=== PATIENT | male | born 1990 | race Caucasian/White ===

== ENCOUNTER 2019-09-30 18:36 | Inpatient (IN) | payer BC ==
[~2019-09-30] VITALS: Ht 182.9 cm; Wt 77.1 kg
--- NOTE | 2019-09-30 19:07 | NUR ---
aSSUMED CARE OF PATIENT. NO ACUTE DISTRESS NOTED. vSS
--- NOTE | 2019-09-30 19:18 | NUR ---
PATIENT AWAITING ER MD EVALUATION.
[2019-09-30 19:30] LABS: BASOPHILS % (AUTO) 0.5 % (0.0-2.0); EOSINOPHILS # (AUTO) 0.2 K/uL (0.0-0.7); EOSINOPHILS % (AUTO) 3.6 % (0.0-7.0); HEMATOCRIT 45.1 % (36.7-47.1); HEMOGLOBIN 15.6 g/dL (12.5-16.3); LYMPHOCYTES # (AUTO) 2.1 K/uL (20.0-40.0); LYMPHOCYTES % (AUTO) 49.5 % (20.5-51.5); MEAN CORPUSCULAR HGB CONC 35 g/dL (32.5-36.3); MEAN CORPUSCULAR VOLUME 94.9 fL (73.0-96.2); MONOCYTES # (AUTO) 0.5 K/uL (2.0-10.0); MONOCYTES % (AUTO) 12.3 % (0.0-11.0); NEUTROPHILS # (AUTO) 1.4 K/uL (1.8-8.9); NEUTROPHILS % (AUTO) 34.1 % (38.5-71.5); PLATELET COUNT (AUTO) 191 K/uL (152-348); RED BLOOD CELL COUNT(AUTO) 4.75 MIL/uL (4.06-5.63); WHITE BLOOD COUNT (AUTO) 4.2 K/uL (3.6-10.2)
[2019-09-30] MEDS ORDERED: PIPERACILLIN SODIUM/TAZOBACTAM 3.375 G in IV DEXTROSE 5% 50 ML IV ONE (19:30)
[2019-09-30] MEDS ORDERED: ONDANSETRON 4 MG/2 ML VIAL IV ONE (19:30)
[2019-09-30] MEDS ORDERED: IV NS 1000 ML 1,000 ML IV ONE (19:30)
[2019-09-30] MEDS ORDERED: MORPHINE SULFATE 4 MG/1 ML DISP.SYRIN IV ONE (19:30)
[2019-09-30] MEDS ORDERED: MORPHINE SULFATE 4 MG/1 ML DISP.SYRIN ONE (19:40)
[2019-09-30] MEDS ORDERED: ONDANSETRON 4 MG/2 ML VIAL ONE (19:40)
[2019-09-30] MEDS ORDERED: PIPERACILLIN/TAZOBACTAM/D5W 50 ML IV ONE (19:41)
[2019-09-30 19:44] LABS: BILIRUBIN,DIRECT 0.1 mg/dL (0.0-0.2); BILIRUBIN,TOTAL 0.5 mg/dL (0.2-1.0); CREATININE 1.3 mg/dL (0.6-1.3); POTASSIUM 4.1 mmol/L (3.5-5.1); TOTAL PROTEIN, SERUM 7.6 g/dL (6.4-8.2)
[2019-09-30] MEDS ORDERED: IV NORMAL SALINE 250 ML IV ONE (20:02)
[2019-09-30] MEDS ORDERED: IOHEXOL 300MG/ML 100 ML INFUS..BTL ONE (20:02)
[2019-09-30] MEDS ORDERED: SWABABLE VALVE TRANSFER SET EA MC ONE (20:02)
--- NOTE | 2019-09-30 20:07 | NUR ---
PATIENT TAKEN TO CT AT THIS TIME.
--- NOTE | 2019-09-30 20:46 | NUR ---
PATIENT IN BED, NO ACUTE DISTRESS NOTED. VSS
--- NOTE | 2019-09-30 21:46 | NUR ---
ALL PATIENT NEEDS ATTENDED AND MET. CALL LIGHT IS WITHIN REACH. VSS
--- NOTE | 2019-09-30 23:12 | NUR ---
Patient in bed, no acute distress noted.
--- NOTE | 2019-10-01 00:09 | NUR ---
Pt. admitted to Med Surg , under care of Chele Horton Belongs List completed
[2019-10-01] MEDS ORDERED: MORPHINE SULFATE 4 MG/1 ML DISP.SYRIN IV ONE (00:15)
--- NOTE | 2019-10-01 00:15 | NUR ---
Report to Faith SORIANO on Med Surg
[2019-10-01 00:40] VITALS: BP 114/71
--- NOTE | 2019-10-01 00:40 | NUR ---
PATIENT RECEIVED FROM ER VIA WHEELCHAIR. ALERT AND ORIENTED X 4. ADMITTING DIAGNOSIS IS POSSIBLE APPENDICITIS. C/O PAIN IN THE RIGHT SIDE OF THE EPIGASTRIC AREA. MORPHINE GIVEN IN ER. LEFT AC 20 G INTACT AND PATENT. ADMITTED TO MED SURG. AGENCY TRAINER ALERTED TO POTENTIAL SURGERY HAPPENING TOMORROW. CALL LIGHT AND FREQUENTLY USED ITEMS WITHIN REACH. WILL CONTINUE TO MONITOR.
[2019-10-01] MEDS ORDERED: PIPERACILLIN SODIUM/TAZO 3.375 GM VIAL ONE (02:12)
[2019-10-01] MEDS ORDERED: PIPERACILLIN/TAZOBACTAM/D5W 50 ML IV ONE (02:13)
[2019-10-01] MEDS: PIPERACILLIN SODIUM/TAZOBACTAM 3.375 G in IV DEXTROSE 5% 50 ML IV SCH ×2 (02:22→06:00)
--- NOTE | 2019-10-01 02:30 | NUR ---
Unable to give IV Zosyn until 0215. Next dose of Zosyn 0600 needs to be augmented to 0800 due to q6h time table. Outside pharmacy informed. Will continue to monitor.
[2019-10-01] MEDS: MORPHINE SULFATE 4 MG/1 ML DISP.SYRIN IV PRN ×6 (02:34→20:56)
[2019-10-01] MEDS ORDERED: PIPERACILLIN SODIUM/TAZOBACTAM 3.375 G in IV DEXTROSE 5% 50 ML IV SCH (06:00)
[2019-10-01 07:12] LABS: BASOPHILS % (AUTO) 0.5 % (0.0-2.0); EOSINOPHILS # (AUTO) 0.2 K/uL (0.0-0.7); EOSINOPHILS % (AUTO) 3.7 % (0.0-7.0); HEMATOCRIT 42.3 % (36.7-47.1); HEMOGLOBIN 14.9 g/dL (12.5-16.3); LYMPHOCYTES # (AUTO) 2.5 K/uL (20.0-40.0); MEAN CORPUSCULAR HEMOGLOBIN 32.9 uug (23.8-33.4); MEAN CORPUSCULAR HGB CONC 35 g/dL (32.5-36.3); MEAN CORPUSCULAR VOLUME 93.3 fL (73.0-96.2); MONOCYTES # (AUTO) 0.5 K/uL (2.0-10.0); MONOCYTES % (AUTO) 11.4 % (0.0-11.0); NEUTROPHILS # (AUTO) 1.2 K/uL (1.8-8.9); NEUTROPHILS % (AUTO) 27.4 % (38.5-71.5); PLATELET COUNT (AUTO) 176 K/uL (152-348); RED BLOOD CELL COUNT(AUTO) 4.54 MIL/uL (4.06-5.63); WHITE BLOOD COUNT (AUTO) 4.3 K/uL (3.6-10.2)
[2019-10-01 07:26] LABS: CREATININE 1.2 mg/dL (0.6-1.3); MAGNESIUM 1.9 mg/dL (1.8-2.4); PHOSPHOROUS 4.1 mg/dL (2.5-4.9); POTASSIUM 3.7 mmol/L (3.5-5.1)
[2019-10-01] MEDS ORDERED: PIPERACILLIN/TAZOBACTAM/D5W 3.375 G in IV DEXTROSE 5% 50 ML IV SCH (07:30)
--- NOTE | 2019-10-01 07:30 | NUR ---
Patient calm and comfortable upon initial assessment ; patient with no signs of distress; patient will continue to be monitored.
[2019-10-01] MEDS: PIPERACILLIN/TAZOBACTAM/D5W 3.375 G in IV DEXTROSE 5% 50 ML IV SCH ×3 (09:03→21:51)
[2019-10-01 12:17] VITALS: BP 116/75
[2019-10-01] MEDS: ONDANSETRON 4 MG/2 ML VIAL IV PRN ×2 (14:59→19:22)
[2019-10-01 17:26] VITALS: BP 107/70
--- NOTE | 2019-10-01 18:27 | NUR ---
Patient expressed he was extremely hungry during shift; patient educated on NPO status for possible surgical procedure; patient notified that primary had contacted MD Yepez about surgical consultation; Surgical GUNNER'S MATE notified as well along with direct contact with MD Yepez with no response. Patient educated on importance of staying NPO for surgical prep protocol; patient verbalized understanding; patient will continue to be monitored. Report given to oncoming nurse.
--- NOTE | 2019-10-01 19:18 | NUR ---
MD Yepez placed orders for clear liquid diet and GI consult ; surgical procedure held.
[2019-10-01] MEDS: IV NS 1000 ML 1,000 ML IV SCH (19:48)
[2019-10-01] MEDS ORDERED: ACETAMINOPHEN 650 MG/20.3 ML LIQUID UDC GT PRN (20:00)
--- NOTE | 2019-10-01 20:10 | NUR ---
Patient stating nausea. Zofran given, and effective. Clear liquid diet advanced and patient requesting jell-o. Tolerated food well. Will continue to monitor.
[2019-10-01 20:17] VITALS: BP 110/72
[2019-10-01] MEDS: ACETAMINOPHEN 325 MG TABLET PO PRN (20:44)
[2019-10-02] MEDS: MORPHINE SULFATE 4 MG/1 ML DISP.SYRIN IV PRN ×6 (00:04→23:34)
[2019-10-02 05:09] VITALS: BP 95/60
[2019-10-02] MEDS: IV NS 1000 ML 1,000 ML IV SCH ×2 (05:52→14:33)
[2019-10-02] MEDS: PIPERACILLIN/TAZOBACTAM/D5W 3.375 G in IV DEXTROSE 5% 50 ML IV SCH ×3 (05:53→21:05)
[2019-10-02 06:26] LABS: BASOPHILS % (AUTO) 0.5 % (0.0-2.0); EOSINOPHILS # (AUTO) 0.1 K/uL (0.0-0.7); EOSINOPHILS % (AUTO) 2.8 % (0.0-7.0); HEMATOCRIT 40.9 % (36.7-47.1); HEMOGLOBIN 14.8 g/dL (12.5-16.3); LYMPHOCYTES # (AUTO) 2.1 K/uL (20.0-40.0); LYMPHOCYTES % (AUTO) 50.5 % (20.5-51.5); MEAN CORPUSCULAR HEMOGLOBIN 33.4 uug (23.8-33.4); MEAN CORPUSCULAR HGB CONC 36 g/dL (32.5-36.3); MEAN CORPUSCULAR VOLUME 91.9 fL (73.0-96.2); MONOCYTES # (AUTO) 0.4 K/uL (2.0-10.0); MONOCYTES % (AUTO) 10.8 % (0.0-11.0); NEUTROPHILS # (AUTO) 1.5 K/uL (1.8-8.9); NEUTROPHILS % (AUTO) 35.4 % (38.5-71.5); PLATELET COUNT (AUTO) 187 K/uL (152-348); RED BLOOD CELL COUNT(AUTO) 4.44 MIL/uL (4.06-5.63); WHITE BLOOD COUNT (AUTO) 4.2 K/uL (3.6-10.2)
[2019-10-02 06:36] LABS: CREATININE 1.2 mg/dL (0.6-1.3); MAGNESIUM 2.1 mg/dL (1.8-2.4); PHOSPHOROUS 4.1 mg/dL (2.5-4.9); POTASSIUM 3.9 mmol/L (3.5-5.1)
--- NOTE | 2019-10-02 08:00 | NUR ---
Reveived patient awake in bed. AAOx4. IV on L AC intact and patent. Denies pain at this time. No SOB noted. Safety measures implemented. Call light within reach. Will continue to monitor.
[2019-10-02 11:56] VITALS: BP 119/65
[2019-10-02] MEDS: ACETAMINOPHEN 325 MG TABLET PO PRN (13:51)
[2019-10-02 16:14] VITALS: BP 107/57
--- NOTE | 2019-10-02 18:02 | NUR ---
Patient complaining of abd pain throughout shift; medicated appropriately with PRN Morphine 4mg IVP throughout shift. In no acute distress. Will endorse care accordingly.
--- NOTE | 2019-10-02 20:00 | NUR ---
RECEIVED PATIENT AWAKE IN BED WITH GIRLFRIEND AT BEDSIDE. PATIENT IS A/O X4. C/O PAIN 5/10 IN ABDOMEN. PATIENT AWARE THAT PAIN MEDICATION IS NOT DUE AT THIS TIME. VERBALIZED UNDERSTANDING. VSS. IVF INFUSING WELL ORDERED. CALL LIGHT IN REACH. ALL NEEDS ATTENDED. WILL CONTINUE TO MONITOR AND ASSESS.
[2019-10-02 20:07] VITALS: BP 109/67
[2019-10-03] MEDS: IV NS 1000 ML 1,000 ML IV SCH ×2 (02:07→10:57)
[2019-10-03] MEDS: ACETAMINOPHEN 325 MG TABLET PO PRN ×2 (03:05→12:31)
[2019-10-03] MEDS: ONDANSETRON 4 MG/2 ML VIAL IV PRN (03:05)
[2019-10-03] MEDS: MORPHINE SULFATE 4 MG/1 ML DISP.SYRIN IV PRN ×4 (05:13→16:48)
[2019-10-03] MEDS: PIPERACILLIN/TAZOBACTAM/D5W 3.375 G in IV DEXTROSE 5% 50 ML IV SCH ×2 (05:27→14:08)
--- NOTE | 2019-10-03 05:37 | NUR ---
PATIENT ASLEEP IN BED. NO S/S OF PAIN OR DISCOMFORT. NO RESP. DISTRESS NOTED. VSS. IVF INFUSING WELL. CALL LIGHT IN REACH. ALL NEEDS ATTENDED. WILL CONTINUE TO MONITOR AND ASSESS.
[2019-10-03 05:45] VITALS: BP 118/70
[2019-10-03 06:51] LABS: BASOPHILS % (AUTO) 0.4 % (0.0-2.0); EOSINOPHILS # (AUTO) 0.1 K/uL (0.0-0.7); EOSINOPHILS % (AUTO) 2.9 % (0.0-7.0); HEMATOCRIT 41.4 % (36.7-47.1); HEMOGLOBIN 14.6 g/dL (12.5-16.3); LYMPHOCYTES # (AUTO) 2.3 K/uL (20.0-40.0); LYMPHOCYTES % (AUTO) 50.9 % (20.5-51.5); MEAN CORPUSCULAR HEMOGLOBIN 32.9 uug (23.8-33.4); MEAN CORPUSCULAR HGB CONC 35 g/dL (32.5-36.3); MEAN CORPUSCULAR VOLUME 93.1 fL (73.0-96.2); MONOCYTES # (AUTO) 0.5 K/uL (2.0-10.0); MONOCYTES % (AUTO) 10.8 % (0.0-11.0); NEUTROPHILS # (AUTO) 1.6 K/uL (1.8-8.9); PLATELET COUNT (AUTO) 187 K/uL (152-348); RED BLOOD CELL COUNT(AUTO) 4.45 MIL/uL (4.06-5.63); WHITE BLOOD COUNT (AUTO) 4.6 K/uL (3.6-10.2)
[2019-10-03 07:19] LABS: CREATININE 1.2 mg/dL (0.6-1.3)
--- NOTE | 2019-10-03 11:46 | NUR ---
Per hospitalist's notes, advance diet as tolerated. Patient states he has been tolerating clear liquids well. Will advance to full liquids. Instructed patient to notify primary nurse of increased pain level, discomfort, cramps, nausea or vomiting. Patient verbalizes understanding. Will monitor.
[2019-10-03 11:57] VITALS: BP 114/61
[2019-10-03] MEDS ORDERED: CIPR500T5 PO (16:33)
[2019-10-03] MEDS ORDERED: HYDR-3972 PO (16:33)
[2019-10-03] MEDS ORDERED: ONDA4TAB11 SL (16:33)
--- NOTE | 2019-10-03 18:42 | NUR ---
Patient discharged back to home. In no acute distress. Exit care and education provided. VSS. Advised to follow up with PCP and cnc lathe machine operator outpatient within 1 week.
== END 2019-10-03 18:00 | disposition home or self-care (01) | DRG 394 ==
LOC: ER 18:40 → MEDSURG3 10-01 00:23
PROVIDERS: ADMIT Nurse Practitioner Acute Care; ATTEND Hospitalist
DX: K37 Unspecified appendicitis (principal); K56.7 Ileus, unspecified; K52.9 Noninfective gastroenteritis and colitis, unspecified; F17.210 Nicotine dependence, cigarettes, uncomplicated; Z86.61 Personal history of infections of the central nervous system; Z83.79 Family history of other diseases of the digestive system; R16.1 Splenomegaly, not elsewhere classified; Z72.89 Other problems related to lifestyle
CPT/HCPCS: 36415; 83690; 83735; 84100; 85025; A4663; G0378; J2270; J2405; J2543; J7030; J7050; J7060; Q9967